=== PATIENT | male | born 1960 | race African-American/Black ===

== ENCOUNTER 2018-08-17 04:47 | Emergency (ER) | payer MEDICARE, MEDICAID ==
[~2018-08-17] VITALS: Ht 167.6 cm; Wt 68.0 kg
[2018-08-17] MEDS ORDERED: IBUPROFEN 600MG TABLET PO ONE (06:30)
[2018-08-17] MEDS ORDERED: BACITRACIN ZINC OINT UDPKT TOP ONE (06:30)
[2018-08-17] MEDS ORDERED: TETANUS, DIPHTHERIA, PERTUSSIS VAC/PF 0.5ML (>7YR OLD) IM ONE (06:30)
[2018-08-17] MEDS ORDERED: LIDOCAINE HCL/PF 1% 10 MG/ML 5ML VIAL IJ ONE (06:30)
[2018-08-17 08:32] VITALS: BP 127/65
== END 2018-08-17 12:39 | disposition home or self-care (01) ==
LOC: ER 04:47
DX: S81.852A Open bite, left lower leg, initial encounter (principal); S81.851A Open bite, right lower leg, initial encounter; F17.200 Nicotine dependence, unspecified, uncomplicated; F12.10 Cannabis abuse, uncomplicated; W54.0XXA Bitten by dog, initial encounter; Y93.89 Activity, other specified; Y92.89 Other specified places as the place of occurrence of the external cause; Y99.8 Other external cause status; Z88.0 Allergy status to penicillin; Z98.890 Other specified postprocedural states
CPT/HCPCS: 12005; 73590; 90471; 90715; 99284; J3490; 99283

== ENCOUNTER 2018-08-19 10:34 | Emergency (ER) | payer MEDICARE, MEDICAID ==
[~2018-08-19] VITALS: Ht 165.1 cm; Wt 68.0 kg
[2018-08-19] MEDS ORDERED: BACITRACIN ZINC OINT UDPKT TOP ONE (14:30)
[2018-08-19] MEDS ORDERED: IBUPROFEN 600MG TABLET PO STA (15:18)
[2018-08-19 15:31] VITALS: BP 121/65
== END 2018-08-19 15:36 | disposition home or self-care (01) ==
LOC: ER 10:35
DX: S81.812D Laceration without foreign body, left lower leg, subsequent encounter (principal); S81.811D Laceration without foreign body, right lower leg, subsequent encounter; R56.9 Unspecified convulsions; F12.10 Cannabis abuse, uncomplicated; Z98.890 Other specified postprocedural states; Z88.0 Allergy status to penicillin; W54.0XXD Bitten by dog, subsequent encounter
CPT/HCPCS: 99283

== ENCOUNTER 2018-08-31 11:39 | Inpatient (IN) | payer MEDICARE, MEDICAID ==
[~2018-08-31] VITALS: Ht 165.1 cm; Wt 74.8 kg
[2018-08-31] MEDS ORDERED: ONDANSETRON HCL 4MG/2ML INJ IV STA (12:36)
[2018-08-31] MEDS ORDERED: MORPHINE SULFATE 4 MG/ML CPJ (NOT FOR IM USE) IV STA (12:36)
[2018-08-31] MEDS ORDERED: VANCOMYCIN 1 G PREMIX 200 ML IV SCH (12:45)
[2018-08-31] MEDS ORDERED: LEVOFLOXACIN 750MG PREMIX 150 ML IV ONE (12:45)
[2018-08-31] MEDS ORDERED: SODIUM CHLORIDE 0.9% 1000ML BAG (SEPSIS BOLUS) IV ONE (12:45)
[2018-08-31 13:22] LABS: BASOPHILS % 0.4 % (0.0-2.0); EOSINOPHILS % 2.1 % (0.0-5.0); HEMATOCRIT. 36.7 % (42.0-52.0); HEMOGLOBIN. 11.6 g/dL (14.0-18.0); LYMPHOCYTES % 32.5 % (20.0-50.0); MEAN CORPUSCULAR HEMOGLOBIN 24.1 pg (28.0-32.0); MEAN CORPUSCULAR VOLUME 76.2 fL (80.0-94.0); MEAN PLATELET VOLUME 7.8 fl (7.4-10.4); MONOCYTES % 8.6 % (2.0-8.0); NEUTROPHILS % 56.4 % (40.0-76.0); PLATELET 409 x1000/uL (130-400); RED BLOOD CELL COUNT 4.81 mill/uL (4.7-6.1); RED CELL DISTRIBUTION WIDTH 16.6 % (11.6-14.6)
[2018-08-31 13:26] LABS: CHLORIDE 110 mEq/L (98-107)
[2018-08-31 13:30] LABS: ETHANOL BLOOD < 10 mg/dL
[2018-08-31 13:44] LABS: INR 1.1
[2018-08-31] MEDS ORDERED: GUAIFENESIN 200MG/10ML SUGAR FREE UDC PO PRN (16:15)
[2018-08-31] MEDS ORDERED: MAGNESIUM/ALUMINUM HYDROXIDE/SIMETHICONE 30ML UDC PO PRN (16:15)
[2018-08-31] MEDS ORDERED: IPRATROPIUM/ALBUTEROL 0.5-3(2.5)MG/3ML NEB INH PRN (16:15)
[2018-08-31] MEDS ORDERED: KETOROLAC 15MG/ML VIAL IV PRN (16:15)
[2018-08-31] MEDS ORDERED: ONDANSETRON HCL 4MG/2ML INJ IV PRN (16:15)
[2018-08-31] MEDS ORDERED: DIPHENHYDRAMINE 50MG/ML VIAL IV PRN (16:15)
[2018-08-31] MEDS ORDERED: NITROGLYCERIN 0.4MG TABLET SL SL PRN (16:15)
[2018-08-31] MEDS ORDERED: DOCUSATE SODIUM 100MG CAPSULE PO PRN (16:15)
[2018-08-31] MEDS ORDERED: ACETAMINOPHEN 325MG TABLET PO PRN (16:15)
[2018-08-31] MEDS ORDERED: CLONIDINE 0.1MG TABLET PO PRN (16:15)
[2018-08-31] MEDS ORDERED: HALOPERIDOL LACTATE 5MG/ML VIAL IM PRN (16:15)
[2018-08-31 16:36] LABS: CLARITY URINE CLEAR (CLEAR); COLOR URINE YELLOW (YELLOW); KETONES URINE NEGATIVE (NEGATIVE); LEUKOCYTE ESTERASE URINE NEGATIVE (NEGATIVE); NITRITE URINE NEGATIVE (NEGATIVE); OCCULT BLOOD URINE NEGATIVE (NEGATIVE); PROTEIN URINE NEGATIVE (NEGATIVE); SPECIFIC GRAVITY URINE 1.008 (1.005-1.030); UROBILINOGEN URINE 0.2 E.U./dL (0.2-1.0)
[2018-08-31 16:43] LABS: T4 FREE 0.62 ng/dL (0.76-1.46)
[2018-08-31 16:48] LABS: *COCAINE SCREEN URINE PRESUMTIVE POSITIVE (NEGATIVE); METHADONE URINE SCREEN NEGATIVE (NEGATIVE); OPIATES URINE SCREEN PRESUMTIVE POSITIVE (NEGATIVE)
[2018-08-31 16:49] LABS: *AMPHETAMINES SCREEN URINE NEGATIVE (NEGATIVE); *BARBITURATES SCREEN URINE PRESUMTIVE POSITIVE (NEGATIVE); *BENZODIAZEPINES SCREEN URINE NEGATIVE (NEGATIVE); CANNABINOID URINE SCREEN NEGATIVE (NEGATIVE); PHENCYCLIDINE URINE SCREEN NEGATIVE (NEGATIVE)
[2018-08-31 16:58] LABS: FOLIC ACID (FOLATE) SERUM 12.4 ng/mL (>5.38)
[2018-08-31 18:12] VITALS: BP 155/72
[2018-08-31] MEDS ORDERED: PHEN100C4 PO (18:46)
[2018-08-31 18:54] VITALS: BP 155/72
[2018-08-31 20:00] VITALS: BP 131/56
[2018-08-31] MEDS ORDERED: ZOLPIDEM TARTRATE 5MG TABLET PO PRN (21:00)
[2018-08-31] MEDS: CLINDAMYCIN 600MG PREMIX 50 ML IV SCH (21:29)
[2018-08-31] MEDS: ENOXAPARIN 30MG/0.3ML SYR SUBCUT SCH (21:30)
[2018-08-31] MEDS: ASCORBIC ACID 500 MG TABLET PO SCH (21:30)
[2018-08-31] MEDS: FAMOTIDINE 20MG TABLET PO SCH (21:30)
[2018-08-31] MEDS: METOPROLOL TARTRATE 25MG TABLET PO SCH (21:31)
[2018-08-31] MEDS: LEVETIRACETAM 500MG TABLET PO SCH (21:31)
[2018-09-01] VITALS: BP 113/42
[2018-09-01 04:00] VITALS: BP 116/68
[2018-09-01] MEDS: CLINDAMYCIN 600MG PREMIX 50 ML IV SCH ×2 (06:45→13:19)
[2018-09-01] MEDS: ZINC SULFATE 220 MG ( 50 ) CAPSULE PO SCH (08:52)
[2018-09-01] MEDS: LEVETIRACETAM 500MG TABLET PO SCH ×2 (08:52→20:44)
[2018-09-01] MEDS: METOPROLOL TARTRATE 25MG TABLET PO SCH ×2 (08:52→20:44)
[2018-09-01] MEDS: FAMOTIDINE 20MG TABLET PO SCH ×2 (08:52→20:45)
[2018-09-01] MEDS: ENOXAPARIN 30MG/0.3ML SYR SUBCUT SCH ×2 (08:52→20:45)
[2018-09-01] MEDS: ASCORBIC ACID 500 MG TABLET PO SCH ×2 (08:52→20:45)
[2018-09-01] MEDS: ASPIRIN 325MG EC TABLET PO SCH (08:52)
[2018-09-01 20:00] VITALS: BP 127/92
[2018-09-01] MEDS ORDERED: CLINDAMYCIN 600MG PREMIX 50 ML IV SCH (22:00)
[2018-09-02] VITALS: BP 130/48
[2018-09-02] MEDS: CLINDAMYCIN 600MG PREMIX 50 ML IV SCH ×4 (00:16→23:24)
[2018-09-02 04:00] VITALS: BP 131/50
[2018-09-02 08:00] VITALS: BP 134/44
[2018-09-02] MEDS: ASCORBIC ACID 500 MG TABLET PO SCH ×2 (08:55→20:44)
[2018-09-02] MEDS: FAMOTIDINE 20MG TABLET PO SCH ×2 (08:56→20:44)
[2018-09-02] MEDS: ENOXAPARIN 30MG/0.3ML SYR SUBCUT SCH (08:56)
[2018-09-02] MEDS: ZINC SULFATE 220 MG ( 50 ) CAPSULE PO SCH (08:56)
[2018-09-02] MEDS: ASPIRIN 325MG EC TABLET PO SCH (08:57)
[2018-09-02] MEDS: LEVETIRACETAM 500MG TABLET PO SCH ×2 (08:57→20:44)
[2018-09-02] MEDS: METOPROLOL TARTRATE 25MG TABLET PO SCH ×2 (08:57→20:47)
[2018-09-02 12:00] VITALS: BP 141/42
[2018-09-02 16:00] VITALS: BP 135/57
[2018-09-02 20:00] VITALS: BP 133/50
[2018-09-03] VITALS: BP 124/53
[2018-09-03 04:00] VITALS: BP 115/61
[2018-09-03 08:00] VITALS: BP 136/51
[2018-09-03] MEDS: CLINDAMYCIN 600MG PREMIX 50 ML IV SCH ×2 (08:58→15:23)
[2018-09-03] MEDS: ASCORBIC ACID 500 MG TABLET PO SCH ×2 (08:58→20:44)
[2018-09-03] MEDS: FAMOTIDINE 20MG TABLET PO SCH ×2 (08:58→20:36)
[2018-09-03] MEDS: ZINC SULFATE 220 MG ( 50 ) CAPSULE PO SCH (08:58)
[2018-09-03] MEDS: LEVETIRACETAM 500MG TABLET PO SCH ×2 (08:58→20:36)
[2018-09-03] MEDS: ASPIRIN 325MG EC TABLET PO SCH (08:58)
[2018-09-03] MEDS: ENOXAPARIN 40MG/0.4ML SYR SUBCUT SCH (08:59)
[2018-09-03] MEDS: METOPROLOL TARTRATE 25MG TABLET PO SCH ×2 (09:28→20:44)
[2018-09-03] MEDS ORDERED: LIDOCAINE HCL/EPINEPHRINE 1%-EPI 1:100,000 20 ML VIAL INFIL ONE (10:30)
[2018-09-03 12:00] VITALS: BP 139/55
[2018-09-03] MEDS: TRAMADOL 50MG TABLET PO PRN (14:34)
[2018-09-03 16:00] VITALS: BP 138/72
[2018-09-03 20:00] VITALS: BP 139/70
[2018-09-04] VITALS: BP 143/60
[2018-09-04] MEDS: CLINDAMYCIN 600MG PREMIX 50 ML IV SCH ×2 (01:09→08:41)
[2018-09-04] MEDS: TRAMADOL 50MG TABLET PO PRN ×2 (01:13→08:41)
[2018-09-04 04:00] VITALS: BP 130/61
[2018-09-04 08:00] VITALS: BP 129/75
[2018-09-04] MEDS: ZINC SULFATE 220 MG ( 50 ) CAPSULE PO SCH (08:40)
[2018-09-04] MEDS: METOPROLOL TARTRATE 25MG TABLET PO SCH (08:41)
[2018-09-04] MEDS: FAMOTIDINE 20MG TABLET PO SCH (08:41)
[2018-09-04] MEDS: LEVETIRACETAM 500MG TABLET PO SCH (08:41)
[2018-09-04] MEDS: ENOXAPARIN 40MG/0.4ML SYR SUBCUT SCH (08:41)
[2018-09-04] MEDS: ASPIRIN 325MG EC TABLET PO SCH (08:41)
[2018-09-04] MEDS: ASCORBIC ACID 500 MG TABLET PO SCH (08:41)
[2018-09-04 11:07] VITALS: BP 129/75
[2018-09-04 12:00] VITALS: BP 131/52
[2018-09-04] MEDS ORDERED: SULFAMETHOXAZOLE/TRIMETHOPRIM 800/160MG TABLET PO SCH (12:00)
== END 2018-09-04 12:30 | disposition home health service (06) | DRG 580 ==
LOC: ER 11:39 → 6EST 14:48 → EDBEDREQ 14:56 → ENRESERV 14:58 → SUPCPDRO 17:21 → 6EST 17:45
PROVIDERS: ADMIT Internal Medicine; ATTEND Internal Medicine
PROC: 0KBT0ZZ Excision of Left Lower Leg Muscle, Open Approach (ICD-10-PCS; principal; 2018-09-03)
PROC: 0KBT0ZZ Excision of Left Lower Leg Muscle, Open Approach (ICD-10-PCS; 2018-09-03)
DX: L03.116 Cellulitis of left lower limb (principal); E44.1 Mild protein-calorie malnutrition; G40.909 Epilepsy, unspecified, not intractable, without status epilepticus; F19.10 Other psychoactive substance abuse, uncomplicated; D64.9 Anemia, unspecified; E83.51 Hypocalcemia; L03.115 Cellulitis of right lower limb; F17.210 Nicotine dependence, cigarettes, uncomplicated; R26.9 Unspecified abnormalities of gait and mobility; E66.9 Obesity, unspecified; F10.10 Alcohol abuse, uncomplicated; F14.10 Cocaine abuse, uncomplicated; F12.10 Cannabis abuse, uncomplicated; Z88.0 Allergy status to penicillin; W54.0XXA Bitten by dog, initial encounter; Y93.89 Activity, other specified; Y92.89 Other specified places as the place of occurrence of the external cause; Y99.8 Other external cause status; Z68.27 Body mass index [BMI] 27.0-27.9, adult
CPT/HCPCS: 36415; 71045; 80305; 80320; 82607; 82746; 83036; 83540; 83550; 83605; 84145; 84439; 84443; 87070; 87077; 93005; 93970; 96365; 96366; 96375; 99285; J1650; J1885; J1956; J2270; J2405; J3370; J3490; J7030; J7040; G0480